=== PATIENT | female | born 1990 | race African-American/Black ===

== ENCOUNTER 2018-10-10 23:47 | Emergency (ER) | payer OTHER ==
[~2018-10-10] VITALS: Wt 53.4 kg
[2018-10-10 23:59] VITALS: BP 122/78; PULSE 80; RESP 18
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
== END 2018-10-11 03:14 | disposition home or self-care (01) ==
LOC: FTE 23:47
DX: S09.90XA Unspecified injury of head, initial encounter (principal); Y04.8XXA Assault by other bodily force, initial encounter
CPT/HCPCS: 99283

== ENCOUNTER → 2019-05-18 | Emergency (ER) | payer OTHER ==
[~2019-05-18] VITALS: Ht 170.2 cm; Wt 53.6 kg
[~2019-05-18] MED LIST: CEPH-443 PO
[2019-05-18 23:28] VITALS: BP 111/56; PULSE 71; RESP 16; Ht 170.2 cm; Wt 53.6 kg
== END | disposition home or self-care (01) ==
LOC: FTE 23:22
DX: N30.01 Acute cystitis with hematuria (principal)
CPT/HCPCS: 81001; Z7502; 87591; 99283